=== PATIENT | male | born 1970 | race Hispanic/Latino ===

== ENCOUNTER 2019-03-07 17:48 | Emergency (ER) | payer OTHER ==
[2019-03-07] MEDS ORDERED: TETRACAINE HCL 0.5% 4 ML OPHTH SOLN ONE (17:56)
[2019-03-07] MEDS ORDERED: NA BORATE/BORIC AC/H2O/NACL 120 ML OPHTH IRRIG SOLN ONE (17:56)
[2019-03-07] MEDS ORDERED: FLUORESCEIN SODIUM 1 STRIP STRIP ONE (17:56)
[2019-03-07] MEDS ORDERED: GENTAMICIN SULFATE 0.3% 5ML DROPS ONE (18:11)
[2019-03-07] MEDS ORDERED: HYDROCODONE/ACETAMINOPHEN 5/325 MG TAB ONE (18:11)
== END 2019-03-07 18:58 | disposition home or self-care (01) ==
LOC: EDH 17:48
DX: S05.02XA Injury of conjunctiva and corneal abrasion without foreign body, left eye, initial encounter (principal); E11.9 Type 2 diabetes mellitus without complications; Z88.0 Allergy status to penicillin; X58.XXXA Exposure to other specified factors, initial encounter; Y93.89 Activity, other specified; Y92.89 Other specified places as the place of occurrence of the external cause; Y99.8 Other external cause status

== ENCOUNTER 2021-02-22 09:10 | Emergency (ER) | payer SELFPAY ==
[~2021-02-22] VITALS: Ht 167.6 cm; Wt 68.0 kg
== END 2021-02-22 11:39 | disposition home or self-care (01) ==
LOC: EDH 09:10
DX: S86.012A Strain of left Achilles tendon, initial encounter (principal); M77.52 Other enthesopathy of left foot and ankle; E10.9 Type 1 diabetes mellitus without complications; Z88.0 Allergy status to penicillin; W18.39XA Other fall on same level, initial encounter; Y93.89 Activity, other specified; Y92.89 Other specified places as the place of occurrence of the external cause; Y99.8 Other external cause status
CPT/HCPCS: 29515; 73610